=== PATIENT | female | born 1965 | race Caucasian/White ===

== ENCOUNTER → 2019-06-17 13:00 | Outpatient (CLI) | payer OTHER, SELFPAY | PROVIDERS: PCP Nurse Practitioner; Visit Provider Nurse Practitioner | DX: G47.30 Sleep apnea, unspecified (principal); R40.0 Somnolence; R06.83 Snoring; G47.33 Obstructive sleep apnea (adult) (pediatric) | CPT/HCPCS: 95806 ==

== ENCOUNTER → 2019-06-30 11:38 | Outpatient (CLI) | payer OTHER, SELFPAY | PROVIDERS: PCP Nurse Practitioner; Visit Provider Nurse Practitioner | DX: I49.9 Cardiac arrhythmia, unspecified (principal) | CPT/HCPCS: 93225; 93226 ==

== ENCOUNTER → 2019-07-08 15:01 | Outpatient (CLI) | payer OTHER, SELFPAY ==
[2019-07-08 15:57] LABS: Basophils % 0.5 % (0.1-2.0); Eosinophils # 0.1 K/mm3 (0.0-0.4); Eosinophils % 1.5 % (0.1-12.0); Hematocrit 41.8 % (37.0-47.0); Hemoglobin 14.2 g/dL (12.2-16.2); Lymphocytes # 1.8 K/mm3 (0.7-4.5); Lymphocytes % 27.2 % (10-50); Mean Corpuscular HGB Conc 33.9 g/dL (31.8-35.4); Mean Corpuscular Hemoglobin 33.2 pg (27.0-31.2); Mean Corpuscular Volume 97.9 fl (81-99); Mean Platelet Volume 8.2 fl (7.4-10.4); Monocytes # 0.4 K/mm3 (0.1-1.0); Monocytes % 6.2 % (1.7-9.3); Neutrophils # 4.3 K/mm3 (1.8-7.8); Neutrophils % 64.7 % (37.0-80.0); Platelet Count 193 K/mm3 (142-424); Red Blood Count 4.27 M/mm3 (4.20-5.40); Red Cell Distribution Width 13.4 % (11.5-17.5); White Blood Count 6.7 K/mm3 (4.8-10.8)
[2019-07-08 16:36] LABS: Chloride 100 mmol/L (98-107); Potassium 3.7 mmoL/L (3.5-5.1); Sodium 139 mmol/L (136-145)
[2019-07-08 16:38] LABS: Alanine Aminotransferase 23 U/L (12-78); Aspartate Amino Transferase 26 U/L (14-36); Blood Urea Nitrogen 13 mg/dl (7-17); Estimated Glomerular Filt Rate 88 ml/min (>60); GFR (African American) 107 ML/MIN (>60)
[2019-07-08 16:39] LABS: Albumin Level 3.8 g/dl (3.5-5.0); Albumin/Globulin Ratio 1.7 (1.1-1.8); Alkaline Phosphatase 82 U/L (38-126); Anion Gap 6.7 mEq/L (5-15); Bilirubin,Total 0.4 mg/dl (0.2-1.3); Calcium 9.3 mg/dl (8.4-10.2); Carbon Dioxide 36 mmol/L (22.0-30.0); Globulin 2.3 g/dL (1.3-3.2); Glucose 121 mg/dl (74-100); Magnesium 1.9 mg/dl (1.6-2.3); Total Protein,Serum 6.1 g/dl (6.3-8.2)
[2019-07-08 16:45] LABS: C-Reactive Protein 7.7 mg/L (0-4)
[2019-07-08 16:52] LABS: Troponin I < 0.01 ng/ml (0.00-0.034)
[2019-07-08 17:09] LABS: Thyroid Stimulating Hormone 2.07 uIU/mL (0.465-4.68)
== END ==
PROVIDERS: Visit Provider Nurse Practitioner Family
DX: R03.0 Elevated blood-pressure reading, without diagnosis of hypertension (principal); R07.9 Chest pain, unspecified; I49.9 Cardiac arrhythmia, unspecified
CPT/HCPCS: 36415; 80053; 83735; 84443; 84484; 85025; 86140

== ENCOUNTER 2020-02-24 16:38 | Emergency (ER) | payer OTHER, SELFPAY ==
[2020-02-24 16:45] VITALS: BP 163/97; PULSE 70; RESP 20; TEMP 36.7; O2SAT 98; BMI 24.7
--- NOTE | 2020-02-24 16:53 | HMH.EDUTC ---
[facility] [place] Clinical Impression: Exposure to COVID-19 virus Disposition: Home, Self-Care Condition on Discharge: Good Instructions: DI for COVID-19 (Suspected or Confirmed ), COVID-19 Viral Test, COVID-19: Testing and Tracing, Preventing the Spread of Coronavirus Discharge Instructions Additional Instructions: *Monitor Temp, Over the counter Motrin or Tylenol as directed/as needed Tylenol every 4 hours and Motrin every 6 hours (as long as your family doctor has told you that you can take it) for fever or pain. and straight to ER if unable to lower temp less than 101.0 after medication given *Warm salt water gargles may help to soothe the throat *Throat Lozenges *Warm fluids like tea with honey may help to soothe the throat *Sleep elevated *Humidifier/Vaporizer Follow up IMMEDIATELY for new or worsening symptoms or no Noticeable improvement over the next 48-72 hours. 911 for difficulty breathing or swallowing You were tested for today for COVID19 your test result should be back in the next 24-48 hours, you may call to the [facility] to see if your test results are back in the next 48 hours [phone] [facility] hours are 9am-9pm You was given a handout with instructions for Self Quarantine and Self isolation for while you wait on test results and what to do if they are positive If you are positive the Health Dept will be contacting you also Referrals: Paris Dobbins APRN [Primary Care Provider] - As needed Forms: Work/School Release Time of Disposition: 16:55 Medical Decision Making - Jovanny Inquiry Pt receiving controlled substance: No Jovanny was queried for this patient: No Vital Signs: 02/24/20 16:45 Temperature 98.0 F Temperature Source Oral Pulse Rate [Left Brachial] 70 Respiratory Rate 20 Blood Pressure [Left Arm] 163/97 H Blood Pressure Mean [Left Arm] 119 Blood Pressure Source [Left Arm] Automatic Cuff Blood Pressure Position [Left Arm] Sitting 02 Sat by Pulse Oximetry 98 Oxygen Delivery Method Room Air Orders (Tests/Meds): ORDERS Category Date Time Status Covid-19 Nasal PCR Sendout P&C Stat Lab 02/24/20 16:40 Ordered [facility] [place] HPI - General Stated complaint: Covid test, loss taste/smell Time Seen by Provider: 02/24/20 16:53 Mode of Arrival: Ambulatory Source of Information: Patient Limitations: No Limitations Description of Symptoms (Recalled from Triage Doc. by RN): PATIENT REQUESTING COVID TEST D/T EXPOSURE; C/O LOSS OF TASTE AND SMELL, ON AND OFF HEAD/BODY ACHES HEENT Symptoms (Recalled from RN notes): Yes Resp Symptoms (Recalled from RN notes): No Skin Symptoms (Recalled from RN notes): No MS Symptoms (Recalled from RN notes): No Functional Status (Recalled from RN notes): WNL - History of Present Illness Provider Complaint: Patient states that she was around a co-worker last week that has since tested positive States that she was tested yesterday and it was negative but today she has lost her taste and smell States that she has been having body aches, chills and headaches on and off and wanted to get tested again for COVID - Related Data Home Medications Medication Instructions Recorded Confirmed escitalopram oxalate 20 mg tablet 20 mg PO DAILY tab 07/16/19 07/16/19 metoprolol succinate 25 mg 25 mg PO DAILY tab 07/16/19 07/16/19 tablet,extended release 24 hr omeprazole 20 mg capsule,delayed 20 mg PO DAILY 08/18/19 08/18/19 release Previous Rx's Medication Instructions Recorded aspirin 81 mg tablet,delayed 81 mg PO DAILY #30 tab 07/16/19 release Allergies Allergy/AdvReac Type Severity Reaction Status Date / Time No Known Allergies Allergy Verified 08/18/19 13:58 - Worker's Comp Is this a Worker's Comp case?: No [facility] History - Hepatitis A Screen Drug use history?: No High risk sexual behaviors?: No History of sexually transmitted infection?: No Currently employed?: No Childcare worker?: No Do you have indoor plumbing?: Yes Do you have electri
[2020-02-24 17:02] VITALS: BP 163/87; PULSE 70; RESP 20; TEMP 36.7; O2SAT 98
== END 2020-02-24 17:02 | disposition home or self-care (01) ==
PROVIDERS: Emergency Provider Nurse Practitioner; PCP Nurse Practitioner
DX: Z20.828 Contact with and (suspected) exposure to other viral communicable diseases (principal); K21.9 Gastro-esophageal reflux disease without esophagitis; F17.210 Nicotine dependence, cigarettes, uncomplicated; Z79.899 Other long term (current) drug therapy
CPT/HCPCS: 99201; U0003; U0004

== ENCOUNTER 2020-04-08 08:32 | Emergency (ER) | payer OTHER, SELFPAY ==
[2020-04-08] VITALS (12 sets, daily range): BP systolic 99–178; BP diastolic 66–93; PULSE 68–95; RESP 16–18; TEMP 36.6; O2SAT 94–98; BMI 25.0
--- NOTE | 2020-04-08 08:34 | ECG_ITS ---
APPROVED REPORT Exam: Resting ECG HR:71 bpm ECG Measurements Heart Rate 71 AXES WI 138 P 80 QRSd 76 QRS 80 QT 378 T 71 QTc 410 Conclusion Normal sinus rhythm Normal ECG Electronically signed by : Dano Lorenzo, 04/08/2020 21:04:37
--- NOTE | 2020-04-08 08:37 | XR_ITS ---
PROCEDURE: XR CHEST PORTABLE CLINICAL HISTORY: chest pain Left-sided chest pain COMPARISON: CT CT ANGIO CHEST from 04/08/2020 FINDINGS: The cardiomediastinal silhouette and pulmonary vascularity are within normal limits. Patchy density is present in the lung bases. Upper lobes are clear. No effusions. No acute bony abnormalities. IMPRESSION: Patchy density in the lung bases suggesting underlying infiltrate. Dictated by: Juan Alberto Palacio MD 04/08/2020 11:26 Juan Alberto Palacio MD in [place] 04/08/2020 11:26
--- NOTE | 2020-04-08 08:39 | HMH.EDGENADL ---
ED Disposition Clinical Impression: Atypical chest pain Disposition: Home, Self-Care Condition on Discharge: Fair Additional Instructions: You have been evaluated for chest pain, atypical. Please follow-up tomorrow morning for stress test with cardiology. Follow-up with Dr. Greenberg in clinic as soon as available. Return to the emergency department at once if you have any new or worsening chest pain or any other concerns. Referrals: PCP,No [Non-Staff] - Time of Disposition: 13:49 - Critical Care Critical Care Time: No Attestation: On , the high probability of a clinically significant, sudden or life threatening deterioration of the following system(s) required my full and direct attention, intervention and personal management. The time I documented below is in addition to time spent performing reported procedures but includes the following listed in this critical care notation. Medical Decision Making - Medical Records Medical records reviewed: Yes: I reviewed the patient's medical records. - Jovanny Inquiry Pt receiving controlled substance: No Vital Signs: 04/08/20 08:33 04/08/20 09:13 04/08/20 09:45 Temperature 97.9 F Temperature Source Oral Pulse Rate [Radial] 71 68 72 Respiratory Rate 16 16 Blood Pressure [Right Radial Artery] 164/93 H 145/91 H 123/77 Blood Pressure Mean [Right Radial Artery] 116 109 92 Blood Pressure Source [Right Radial Artery] Automatic Cuff Blood Pressure Position [Right Radial Artery] Sitting Sitting Sitting 02 Sat by Pulse Oximetry 98 96 98 Oxygen Delivery Method Room Air Room Air 04/08/20 09:51 04/08/20 10:02 04/08/20 10:09 Temperature Temperature Source Pulse Rate [Radial] 83 69 Respiratory Rate Blood Pressure [Right Radial Artery] 106/67 L 99/67 L 99/67 L Blood Pressure Mean [Right Radial Artery] 80 77 77 Blood Pressure Source [Right Radial Artery] Automatic Cuff Blood Pressure Position [Right Radial Artery] Sitting Sitting Sitting 02 Sat by Pulse Oximetry 96 Oxygen Delivery Method Room Air 04/08/20 10:52 04/08/20 11:19 04/08/20 13:37 Temperature Temperature Source Pulse Rate [Radial] 69 70 93 H Respiratory Rate Blood Pressure [Right Radial Artery] 115/72 122/67 132/77 Blood Pressure Mean [Right Radial Artery] 86 85 95 Blood Pressure Source [Right Radial Artery] Automatic Cuff Automatic Cuff Blood Pressure Position [Right Radial Artery] Sitting Sitting Sitting 02 Sat by Pulse Oximetry 98 96 95 Oxygen Delivery Method Room Air Room Air - Lab Data Lab Results 04/08/20 08:40: WBC 8.5, RBC 4.86, Hgb 16.0, Hct 48.9 H, MCV 100.5 H, MCH 33.0 H, MCHC 32.8, RDW 13.9, Plt Count 157, MPV 8.0, Neut % (Auto) 75.5, Lymph % (Auto) 17.7, [place] % (Auto) 4.2, Eos % (Auto) 2.2, Baso % (Auto) 0.4, Neut # (Auto) 6.4, Lymph # (Auto) 1.5, [place] # (Auto) 0.4, Eos # (Auto) 0.2, Baso # (Auto) 0.0 04/08/20 08:40: Sodium 141, Potassium 4.1, Chloride 102, Carbon Dioxide 33 H, Anion Gap 10.1, BUN 12, Creatinine 0.70, Estimated Creat Clear 108, Estimated GFR 88, Est GFR ( Amer) 106, Glucose 106 H, Calcium 10.5 H, Troponin I < 0.01 04/08/20 08:40: SARS-CoV-2 IgG Ab (Rapid) Negative, SARS-CoV-2 IgM Ab (Rapid) Negative 04/08/20 11:50: Troponin I < 0.01 Result diagrams: 04/08/20 08:40 04/08/20 08:40 Orders (Tests/Meds): ED MEDICATIONS Discontinued Medications Generic Name Dose Route Start Last Admin Trade Name Freq PRN Reason Stop Dose Admin Aspirin 243 mg 04/08/20 08:38 04/08/20 08:39 Aspirin 81mg Chewable Tablet PO 04/08/20 08:39 243 mg ONCE ONE Administration Sodium Chloride 1,000 mls @ 999 mls/hr 04/08/20 10:15 04/08/20 10:09 Sod Chlor 0.9% 1000ml Bag IV 04/08/20 11:15 999 mls/hr .Q1H1M KIRILL Administration Iopamidol 70 ml 04/08/20 10:32 04/08/20 10:35 Iopamidol-370 (76%);100ml Bottle IV 04/08/20 10:33 70 ml ONCE ONE Administration Morphine Sulfate 4 mg 04/08/20 10:17 04/08/20 10:18 Morphine 4mg/Ml
--- NOTE | 2020-04-08 08:52 | PC.NURSE ---
Rad at bedside
[2020-04-08 09:03] LABS: Basophils % 0.4 % (0.1-2.0); Eosinophils # 0.2 K/mm3 (0.0-0.4); Eosinophils % 2.2 % (0.1-12.0); Hematocrit 48.9 % (37.0-47.0); Lymphocytes # 1.5 K/mm3 (0.7-4.5); Lymphocytes % 17.7 % (10-50); Mean Corpuscular HGB Conc 32.8 g/dL (31.8-35.4); Mean Corpuscular Volume 100.5 fl (81-99); Monocytes # 0.4 K/mm3 (0.1-1.0); Monocytes % 4.2 % (1.7-9.3); Neutrophils # 6.4 K/mm3 (1.8-7.8); Neutrophils % 75.5 % (37.0-80.0); Platelet Count 157 K/mm3 (142-424); Red Blood Count 4.86 M/mm3 (4.20-5.40); Red Cell Distribution Width 13.9 % (11.5-17.5); White Blood Count 8.5 K/mm3 (4.8-10.8)
[2020-04-08 09:47] LABS: Anion Gap 10.1 mEq/L (5-15); Blood Urea Nitrogen 12 mg/dl (7-17); Calcium 10.5 mg/dl (8.4-10.2); Carbon Dioxide 33 mmol/L (22.0-30.0); Chloride 102 mmol/L (98-107); Creatinine Clearance Estimated 108 mL/min (50-200); Estimated Glomerular Filt Rate 88 ml/min (>60); GFR (African American) 106 ML/MIN (>60); Glucose 106 mg/dl (74-100); Potassium 4.1 mmoL/L (3.5-5.1); Sodium 141 mmol/L (136-145)
--- NOTE | 2020-04-08 09:51 | CT_ITS ---
PROCEDURE: CT ANGIO CHEST CLINCIAL INDICATION: chest pain, radiation to neck Chest pain and shortness of air COMPARISON: No exams were available for comparison TECHNIQUE: IV Contrast: 70ML Isovue 370 Axial images obtained with sagittal and coronal reformats. All CT scans at the facility use one or more dose reduction, viz: automated exposure control, ma/kV adjustment per patient size (including targeted exams where dose is matched to indication, i.e. head), or iterative reconstruction technique. FINDINGS: HEART AND MEDIASTINAL STRUCTURES: No evidence of pulmonary embolus or aortic dissection. There is mild dilatation of the proximal descending thoracic aorta measuring 2.7 cm LUNGS AND PLEURAL SPACES: There are centrilobular emphysematous changes. Atelectatic or fibrotic changes are present in the right middle lobe and lingula. Ground-glass infiltrate noted in the right and left lower lobe posteriorly right greater than left. There is evidence of old granulomatous disease. No effusions are evident. BONY STRUCTURES: No acute bony abnormalities apparent. UPPER ABDOMEN: Unremarkable. ADDITIONAL FINDINGS: No other significant abnormalities. IMPRESSION: 1. No evidence of pulmonary embolus. 2. Mild dilatation of the proximal descending thoracic aorta at 2.7 cm. No evidence of aortic dissection. 3. Ground-glass infiltrate in the lower lobes posteriorly on both sides right greater than left. This is nonspecific and could be infectious/inflammatory. This does not have the usual multifocal appearance that we have been seeing with Covid19 pneumonia however, that entity is not excluded.. Dictated by: Juan Alberto Palacio MD 04/08/2020 10:56 Juan Alberto Palacio MD in [place] 04/08/2020 10:56
[2020-04-08 10:05] LABS: Troponin I < 0.01 ng/ml (0.00-0.034)
[2020-04-08 11:44] LABS: Coronavirus 19 IgG Antibody Negative (Negative); Coronavirus 19 IgM Antibody Negative (Negative)
--- NOTE | 2020-04-08 11:54 | CA_ITS ---
APPROVED REPORT EXAM: Comprehensive 2D, Doppler, and color-flow Echocardiogram Commercial Artist Lettering: Rosalinda Alvarez RVT Ht: 5 ft 7 in Wt: 160lbs BSA: 1.84 BP: 122/67 mmHg Indications: CP,SMOKER,PALPS,HTN 2D Dimensions LVOT 1.78 cm (M/F) 1.5-2.5 M-Mode Dimensions RVDd 2.32 cm (0.9-2.6) LA Diam 3.37 cm (1.9-4.0) LVDd 4.61 cm (3.5-5.7) Ao Diam 2.33 cm (2.0-3.7) LVDs 2.83 cm (3.5-5.7) IVSd 0.66 cm (0.6-1.1) PWd 0.80 cm (0.6-1.1) EF (Teich) 69.00% FS 38.60% EDV (Teich) 97.80 mL ESV (Teich) 30.30 mL LV Diastology E Decel Time 240.00 (160-240 msec) E/A Ratio 1.0 MED E' 9.60 (< 7 cm/sec) E'/MED E' Ratio 10.93 (>14) LAT E' 11.00 (<10 cm/sec) E/LAT E' Ratio 9.54 (>14) Mitral Valve MV E Max Blademar. 105.00 (40-130 cm/s) MV A Velocity 102.00 (40-130 cm/s) E/A Ratio 1.03 MV Decel. Time 240.00 (160-240 ms) MV PHT 70.00 ms Pulmonary Valve PV Peak Velocity 61.00 (50-150 cm/s) Tricuspid Valve TR P. Velocity 190.00 cm/s Left Ventricle Left atrium is normal size, left ventricle is normal size, there is no concentric left ventricular hypertrophy, visually estimated ejection fraction 55% with no regional wall motion abnormality. Diastolic parameters are within normal range. Right Ventricle Right atrium is normal size, right ventricle is mildly enlarged with normal contractility. Aortic Valve Aortic valve is minimally thickened and fibrosed. There is no aortic stenosis or aortic insufficiency. Mitral Valve Mitral valve is grossly normal, there is trace mitral regurgitation. Tricuspid Valve Tricuspid valve grossly normal, there is trace tricuspid regurgitation, tricuspid regurgitation jet velocity is inadequate for calculation of the right ventricular systolic pressure. Pulmonic Valve Pulmonic valve is poorly visualized. Great Vessels Aortic root is normal size. Pericardium No significant pericardial effusion noted. Conclusion 1. Normal left ventricular size, preserved left ventricular systolic function, visually estimated ejection fraction 55% with no regional wall motion abnormality, diastolic parameters are within normal range. 2. Mildly enlarged right ventricle with normal contractility. 3. Trace mitral and tricuspid regurgitation. 4. No significant pericardial effusion noted. Electronically signed by : Naveen Shaikh, 04/08/2020 15:10:12
--- NOTE | 2020-04-08 12:17 | PC.NURSE ---
Echo lab at bedside
--- NOTE | 2020-04-08 12:18 | PC.NURSE ---
PT HAVING A ECHO DONE AT BEDSIDE
[2020-04-08 12:49] LABS: Troponin I < 0.01 ng/ml (0.00-0.034)
--- NOTE | 2020-04-08 13:13 | PC.NURSE ---
[facility] AGREED TO ADMISSION WE CALLED DR DESAI HE DOESNT WANT TO ADMIT PT SAYS THAT CARDIOLOGY CAN JUST ADMIT UNDER THEIR SERVICES, WE CALLED BARRY BACK AND SHE SAYS FOR PT TO COME BACK TOMORROW FOR STRESS TEST THEY WILL CONTACT WITH TIMES
--- NOTE | 2020-04-08 13:18 | HMH.CNCARD ---
History of Present Illness Consult date: 04/08/20 Requesting physician: Nelly Galvin Consult reason: chest pain Chief complaint: chest pain History of present illness: This is a 54-year-old female presenting to the emergency department with complaints of chest pain. She states that this pain is in the substernal aspect of her chest and radiating into the left side of her neck and her left arm. She states that at the worst the pain is a 8 out of 10 in intensity. She describes this as a aching and pressure sensation. She states this pain woke her up from sleep. She states that she is short of breath with the chest pain. She denies any nausea vomiting or diaphoresis. She states that she has never had chest pain like this before and it is much worse than it has been in the past. She denies any edema. She denies any fever, chills, nausea, vomiting, diarrhea, PND or orthopnea. [facility] History I have reviewed the patient's past medical history: Yes Medical History: Reports:: Palpitations *Have you ever received a pneumonia vaccine?: No *Have you received a flu vaccine this season?: Yes Other Surgeries: Yes: No Previous Surgery - *Social History Smoking Status: Current every day smoker # Packs/Day (cigarettes): 1 Alcohol Intake: never Alcohol Intake Frequency:: holidays/special occasions only Substance Use Type: denies use *Occupational Status:: other *Travel in the last 8 weeks: None Family Hx:: Coronary Artery Disease, Cancer, Hypertension Meds Home Medications Medication Instructions Recorded Confirmed Type escitalopram oxalate 20 mg tablet 20 mg PO DAILY tab 07/16/19 04/08/20 History metoprolol succinate 25 mg 25 mg PO DAILY tab 07/16/19 04/08/20 History tablet,extended release 24 hr omeprazole 20 mg capsule,delayed 20 mg PO DAILY 08/18/19 04/08/20 History release Aspirin [Low Dose Aspirin EC] 81 mg PO DAILY 04/08/20 04/08/20 History Allergies Allergy/AdvReac Type Severity Reaction Status Date / Time No Known Allergies Allergy Verified 03/15/20 14:08 Exam Vital signs and Labs for Last 24 Hours: Temp Pulse Resp BP Pulse Ox 97.9 F 70 16 122/67 96 04/08/20 08:33 04/08/20 11:19 04/08/20 09:45 04/08/20 11:19 04/08/20 11:19 Laboratory Results - last 24 hr 04/08/20 08:40: WBC 8.5, RBC 4.86, Hgb 16.0, Hct 48.9 H, MCV 100.5 H, MCH 33.0 H, MCHC 32.8, RDW 13.9, Plt Count 157, MPV 8.0, Neut % (Auto) 75.5, Lymph % (Auto) 17.7, [place] % (Auto) 4.2, Eos % (Auto) 2.2, Baso % (Auto) 0.4, Neut # (Auto) 6.4, Lymph # (Auto) 1.5, [place] # (Auto) 0.4, Eos # (Auto) 0.2, Baso # (Auto) 0.0 04/08/20 08:40: Sodium 141, Potassium 4.1, Chloride 102, Carbon Dioxide 33 H, Anion Gap 10.1, BUN 12, Creatinine 0.70, Estimated Creat Clear 108, Estimated GFR 88, Est GFR ( Amer) 106, Glucose 106 H, Calcium 10.5 H, Troponin I < 0.01 04/08/20 08:40: SARS-CoV-2 IgG Ab (Rapid) Negative, SARS-CoV-2 IgM Ab (Rapid) Negative 04/08/20 11:50: Troponin I < 0.01 I & O for Last 24 hours: Intake & Output 04/05/20 04/06/20 04/07/20 04/08/20 23:59 23:59 23:59 23:59 Weight 160 lb Narrative: EKG is sinus rhythm and normal with a rate of 71. - Constitutional no acute distress, average body habitus - *Routine HEENT Exam Head: Present: normocephalic, atraumatic Eye: Present: EOMI, PERRL ENT: Present: mucous membranes moist - *Routine Neck Exam Present: supple, full ROM, normal carotid upstroke. Absent: JVD, carotid bruit, lymphadenopathy - *Routine Respiratory Exam Present: CTA bilaterally - *Routine Cardiovascular Exam Present: RRR, Normal S1, Normal S2. Absent: murmur - *Routine Abdominal Exam Present: soft, normoactive bowel sounds. Absent: tenderness, distended - *Routine Extremities Exam Present: full ROM, pulses intact, normal capillary refill. Absent: cyanosis, clubbing, edema - *Routine Skin Exam Present: intact, warm. Absent: erythema, rash - *Routine Neurological Exam Present: alert, orien
--- NOTE | 2020-04-08 13:51 | PC.NURSE ---
PT IS TO BE BACK IN THE MORNING @ 0750 FOR HER STRESS TEST BUT PT HAS NO INS SO REYNA VITALE IS WORKING ON THIS
[2020-04-08 15:07] LABS: Troponin I < 0.01 ng/ml (0.00-0.034)
--- NOTE | 2020-04-08 15:14 | PC.NURSE ---
pt waiting for bus van driver to come to [place] and pick her up to take her home
== END 2020-04-08 15:34 | disposition home or self-care (01) ==
PROVIDERS: Emergency Provider Emergency Medicine; PCP Nurse Practitioner
DX: R07.89 Other chest pain (principal); I10 Essential (primary) hypertension; F17.210 Nicotine dependence, cigarettes, uncomplicated; Z01.84 Encounter for antibody response examination; Z79.899 Other long term (current) drug therapy
CPT/HCPCS: 36415; 71045; 71275; 80048; 84484; 85025; 86328; 93005; 93306; 96365; 96375; 96376; 99283; J2405; Q9967

== ENCOUNTER → 2020-04-09 07:29 | Outpatient (CLI) | payer OTHER, SELFPAY ==
--- NOTE | 2020-04-09 | CA_ITS ---
APPROVED REPORT Exam: Exercise Treadmill Technologist: Toyin Lujan, Ht: 5 ft 8 in Wt: 163 lbs BSA: 1.87 m2 HR: 70 bpm BP: 130/82 mmHg Rhythm: NSR Medical History Medications: Omeprazole,,,,, Metoprolol,,,,, Lexapro,,,,, Asapirin,,,,, Stress Test Details Test: Laci HR Resting HR: 78 bpm Max Heart Rate (APMHR): 168 bpm Max HR Achieved: 150 bpm Target HR (85% APMHR): 142 bpm % of APMHR: 89 Recovery HR: 89 bpm BP Resting BP: 137/87 mmHg Max BP: 147/77 mmHg Recovery BP: 147.0/65.0 mmHg ECG Clinical Exercise duration: 06:22 min Highest Stage Achieved: Exercise capacity: 7.0 METs Stress ECG Conclusion Max HR - 150: %of PM - 89.1: Max B/P - 147/77: Mets - 7.0 - test stopped due to shortness of breath - resolved in recovery. Symptoms - no chest pain - shortness of breath at peak. Occ. PVC. ST -T changes - less than 1.5mm ST depression. Baseline artifact. GXT only - less than 1.[address] depression. Average exercise tolerance. Appioprate B/P response. Normal GXT. Test Summary REST . . . . . . . Sitting REST . . . . . . . Standing REST 03:37 0.0 1.2 78 . 137/ 87 . . Stage 1 01:00 10.0 1.7 97 . . . . Stage 1 02:00 10.0 1.7 107 . 142/ 84 . . Stage 1 03:00 10.0 1.7 109 . 142/ 84 . . Stage 2 01:00 12.0 2.5 120 . . . . Stage 2 02:00 12.0 2.5 132 . . . . Stage 2 03:00 12.0 2.5 138 . 142/ 98 . . Stage 3 00:22 14.0 3.4 97 . . . Stop exercise at 06:22 RECOVERY 01:00 0.0 0.0 129 . . . . RECOVERY 02:00 0.0 0.0 109 . 147/ 77 . . RECOVERY 03:00 0.0 0.0 91 . 147/ 77 . . RECOVERY 03:53 0.0 0.0 88 . 147/ 65 . . Electronically signed by : Naveen Shaikh, 04/09/2020 13:25:05
== END ==
PROVIDERS: PCP Nurse Practitioner; Visit Provider Nurse Practitioner Family
DX: R07.89 Other chest pain (principal); R00.2 Palpitations; I49.9 Cardiac arrhythmia, unspecified; R53.83 Other fatigue
CPT/HCPCS: 93017

== ENCOUNTER → 2020-11-22 17:25 | Outpatient (CLI) | payer SELFPAY | PROVIDERS: PCP Nurse Practitioner Family; Visit Provider Nurse Practitioner | DX: Z20.822 Contact with and (suspected) exposure to COVID-19 (principal) | CPT/HCPCS: C9803; U0003; U0005 ==

== ENCOUNTER 2021-02-25 17:03 | Emergency (ER) | payer SELFPAY ==
[2021-02-25 17:04] VITALS: BP 143/96; PULSE 90; RESP 16; TEMP 36.8; O2SAT 96; BMI 23.8
--- NOTE | 2021-02-25 17:28 | XR_ITS ---
PROCEDURE INFORMATION: Exam: XR Left Knee Exam date and time: 02/25/2021 5:28 PM Age: 55 years old Clinical indication: Injury or trauma; Fall; Blunt trauma; Knee; Left; Patient HX: Pain TECHNIQUE: Imaging protocol: XR Left knee. Views: 3 views. Total images: 3 COMPARISON: No relevant prior studies available. FINDINGS: Bones/joints: Osteopenia. No fracture. No blastic or lytic lesions. No significant joint effusion is present. Mild joint space narrowing in the medial tibiofemoral compartment. Slight medial joint line spurring. Soft tissues: No periostitis or osteolysis. No gross soft tissue abnormalities. No foreign bodies. Other findings: Normal alignment. IMPRESSION: 1. No acute findings. 2. Osteopenia and mild osteoarthritic changes in the medial compartment.
--- NOTE | 2021-02-25 17:28 | XR_ITS ---
PROCEDURE INFORMATION: Exam: XR Right Knee Exam date and time: 02/25/2021 5:28 PM Age: 55 years old Clinical indication: Injury or trauma; Blunt trauma; Knee; Left; Patient HX: Fall , pain TECHNIQUE: Imaging protocol: XR Right knee. Views: 3 views. Total images: 3 COMPARISON: No relevant prior studies available. FINDINGS: Bones/joints: No fracture. No blastic or lytic lesions. No significant joint effusion is present. Minimal joint space narrowing in the medial tibiofemoral compartment. Soft tissues: No periostitis or osteolysis. No gross soft tissue abnormalities. No foreign bodies. Other findings: Normal alignment. IMPRESSION: 1. No acute findings. 2. Osteopenia and minimal osteoarthritic joint space narrowing in the medial compartment.
[2021-02-25 17:29] VITALS: BP 143/96; PULSE 90; RESP 16; TEMP 36.8; O2SAT 96; BMI 23.8
--- NOTE | 2021-02-25 19:02 | HMH.EDUTC ---
[facility] [place] Clinical Impression: Fall Qualifiers: Encounter type: initial encounter Qualified Code(s): W19.XXXA - Unspecified fall, initial encounter Bilateral knee pain Qualifiers: Chronicity: acute Qualified Code(s): M25.561 - Pain in right knee Right knee sprain Qualifiers: Encounter type: initial encounter Involved ligament of knee: unspecified ligament Qualified Code(s): S83.91XA - Sprain of unspecified site of right knee, initial encounter Disposition: Home, Self-Care Condition on Discharge: Good Instructions: Knee Sprain, DI for Knee Sprain, How to Use a Knee Immobilizer Additional Instructions: Rest the extremities, apply ice for 15 minutes as tolerated three or four times per day for the next 48 hours then apply heat if it helps, Elevate the extremities as tolerated while you are resting. Take ibuprofen for pain. I sent in a prescription to your pharmacy. Follow up with Dr. Bryant (orthopedics). Sometimes there can be fractures that don't show up well on the first set of x-rays. So, you should follow up if you continue to have symptoms. I put in a referral but you need to call his office and schedule an appointment. Follow up with your regular doctor. GO TO THE ER FOR ANY WORSENING SYMPTOMS Prescriptions: Ibuprofen [Ibuprofen 800mg Tablet] 800 mg PO Q8HP PRN #30 tab PRN Reason: Moderate Pain Transmission Status: Pending to [id number] Referrals: Dano Greenberg MD [Primary Care Provider] - Donnie Bryant MD [Staff Physician] - Time of Disposition: 19:21 Medical Decision Making - Medical Records Medical records reviewed: No: I reviewed the patient's medical records. - Jovanny Inquiry Pt receiving controlled substance: No Vital Signs: 02/25/21 17:04 02/25/21 17:29 Temperature 98.3 F 98.3 F Temperature Source Oral Oral Pulse Rate [Radial] 90 90 Respiratory Rate 16 16 Blood Pressure [Right Arm] 143/96 H 143/96 H Blood Pressure Mean [Right Arm] 111 111 Blood Pressure Position [Right Arm] Sitting 02 Sat by Pulse Oximetry 96 96 Oxygen Delivery Method Room Air - Lab Data Lab results reviewed: Yes: I reviewed the patient's lab results. [facility] [place] - General Stated complaint: AO 1224 fall, left leg pain Time Seen by Provider: 02/25/21 17:30 Mode of Arrival: Ambulatory Source of Information: Patient Limitations: No Limitations Description of Symptoms (Recalled from Triage Doc. by RN): pt c/o pain bilaterally in her knees. pt fell last night on them. pt is unable to put any pressure on. HEENT Symptoms (Recalled from RN notes): No Resp Symptoms (Recalled from RN notes): No Skin Symptoms (Recalled from RN notes): No MS Symptoms (Recalled from RN notes): Yes (bilateral knee pain) Functional Status (Recalled from RN notes): wnl - History of Present Illness Provider Complaint: She slipped in her house by stepping on a puppy pad and it sliding. When this happened, both feet went out and her knees came together. She is having bilateral knee pain. Her right knee is worse that her left. When she tries to walk, her right knee pain prevents it. - Related Data Home Medications Medication Instructions Recorded Confirmed escitalopram oxalate 20 mg tablet 20 mg PO DAILY tab 07/16/19 09/13/20 Aspirin [Low Dose Aspirin EC] 81 mg PO DAILY 04/08/20 09/13/20 omeprazole 20 mg capsule,delayed 20 mg PO DAILY PRN 04/20/20 09/13/20 release Previous Rx's Medication Instructions Recorded Ibuprofen [Ibuprofen 800mg 800 mg PO Q8HP PRN #30 tab 02/25/21 Tablet] Allergies Allergy/AdvReac Type Severity Reaction Status Date / Time No Known Allergies Allergy Verified 09/13/20 13:45 - Worker's Comp Is this a Worker's Comp case?: No [facility] History - Hepatitis A Screen Drug use history?: No High risk sexual behaviors?: No History of sexually transmitted infection?: No Currently employed?: No Childcare worker?: No Do you have indoor plumbing?: Yes Do
[2021-02-25 19:26] VITALS: BP 143/96; PULSE 90; RESP 16; TEMP 36.8
== END 2021-02-25 19:27 | disposition home or self-care (01) ==
LOC: ER 17:15 → UTC 17:17
PROVIDERS: Emergency Provider Nurse Practitioner Family; PCP Family Medicine
DX: S83.91XA Sprain of unspecified site of right knee, initial encounter (principal); W01.0XXA Fall on same level from slipping, tripping and stumbling without subsequent striking against object, initial encounter; Y92.019 Unspecified place in single-family (private) house as the place of occurrence of the external cause; F17.210 Nicotine dependence, cigarettes, uncomplicated
CPT/HCPCS: 29505; 73562; 99202; G0463

== ENCOUNTER → 2021-03-28 11:34 | Outpatient (CLI) | payer BC, SELFPAY | PROVIDERS: Visit Provider Nurse Practitioner | DX: U07.1 COVID-19 (principal) | CPT/HCPCS: C9803; U0003; U0005 ==

== ENCOUNTER 2023-04-03 12:54 | Outpatient (CLI) | payer OTHER, SELFPAY ==
[2023-04-03 12:56] LABS: Microscopic, Urine URINE MICROSCOPIC (MICROSCOPIC)
[2023-04-03 13:04] LABS: Basophils # 0.1 K/mm3 (0-0.2); Basophils % 1.1 % (0.1-2.0); Eosinophils # 0.2 K/mm3 (0.0-0.4); Eosinophils % 2.9 % (0.1-12.0); Hematocrit 47.2 % (37.0-47.0); Hemoglobin 16.1 g/dL (12.2-16.2); Lymphocytes # 1.8 K/mm3 (0.7-4.5); Lymphocytes % 27.9 % (10-50); Mean Corpuscular HGB Conc 34.2 g/dL (31.8-35.4); Mean Corpuscular Hemoglobin 34.4 pg (27.0-31.2); Mean Corpuscular Volume 100.7 fl (81-99); Mean Platelet Volume 9.2 fl (7.4-10.4); Monocytes # 0.4 K/mm3 (0.1-1.0); Monocytes % 5.9 % (1.7-9.3); Neutrophils # 4.1 K/mm3 (1.8-7.8); Neutrophils % 62.2 % (37.0-80.0); Platelet Count 178 K/mm3 (142-424); Red Blood Count 4.69 M/mm3 (4.20-5.40); Red Cell Distribution Width 13.7 % (11.5-17.5); White Blood Count 6.6 K/mm3 (4.8-10.8)
[2023-04-03 13:23] LABS: Appearance,Urine CLEAR (Clear); Bilirubin,Urine Negative (Negative); Blood, Urine TRACE-I (Negative); Color,Urine YELLOW (Yellow); Glucose,Urine (UA) Negative (Negative); Ketones,Urine Negative (Negative); Leukocyte Esterase,Urine Negative (Negative); Nitrate,Urine Negative (Negative); Protein,Urine Negative (Negative); Specific Gravity, Urine 1.025 (1.005-1.030); Urobilinogen,Urine 0.2 EU/dl (0.2)
[2023-04-03 13:31] LABS: Alanine Aminotransferase 28 U/L (12-78); Albumin Level 4.2 g/dl (3.5-5.0); Albumin/Globulin Ratio 1.8 (1.1-1.8); Alkaline Phosphatase 94 U/L (38-126); Anion Gap 8.3 mEq/L (5-15); Aspartate Amino Transferase 29 U/L (14-36); Bilirubin,Total 0.3 mg/dl (0.2-1.3); Blood Urea Nitrogen 10 mg/dl (7-17); Calcium 9.7 mg/dl (8.4-10.2); Carbon Dioxide 33 mmol/L (22.0-30.0); Chloride 102 mmol/L (98-107); Cholesterol 246 mg/dl (140-200); Estimated Glomerular Filt Rate 74 ml/min (>60); GFR (African American) 90 ML/MIN (>60); Globulin 2.3 g/dL (1.3-3.2); Glucose 96 mg/dl (74-100); HDL Cholesterol 82 mg/dl (40-60); Potassium 5.3 mmoL/L (3.5-5.1); Sodium 138 mmol/L (136-145); Total Protein,Serum 6.5 g/dl (6.3-8.2); Triglycerides 141 mg/dl (30-150); VLDL Cholesterol 28 mg/dL (0-40)
[2023-04-03 13:35] LABS: Bacteria,Urine Trace /lpf; RBC,Urine Occasional #/hpf (0-3); Squamous Epithelial Cell,Urine Occasional #/hpf (0-5)
[2023-04-03 13:42] LABS: Direct LDL Cholesterol 120.57 mg/dL (100-129)
[2023-04-03 13:47] LABS: Free T4 (Free Thyroxine) 0.79 ng/dl (0.78-2.19)
[2023-04-03 14:02] LABS: Thyroid Stimulating Hormone 2.65 uIU/mL (0.465-4.68)
[2023-04-03 14:21] LABS: Vitamin B12 323 pg/mL (239-931)
[2023-04-03 14:31] LABS: Hemoglobin A1C 5.7 % (4.0-6.0)
== END 2023-04-03 23:59 ==
LOC: LAB.DROPOF 12:54
PROVIDERS: PCP Nurse Practitioner Family; Visit Provider Nurse Practitioner Family
DX: I10 Essential (primary) hypertension (principal); F41.9 Anxiety disorder, unspecified; F32.9 Major depressive disorder, single episode, unspecified; R53.83 Other fatigue; K21.9 Gastro-esophageal reflux disease without esophagitis; E55.9 Vitamin D deficiency, unspecified; F17.210 Nicotine dependence, cigarettes, uncomplicated; Z79.899 Other long term (current) drug therapy
CPT/HCPCS: 80053; 80061; 81001; 82306; 82607; 83036; 84439; 84443; 85025; 87086

== ENCOUNTER 2023-04-19 09:15 | Outpatient (CLI) | payer OTHER, SELFPAY ==
--- NOTE | 2023-04-19 09:15 | XR_ITS ---
FINAL REPORT TECHNIQUE: Bone mineral density was calculated of the lumbar spine and hip. CLINICAL HISTORY: screening osteoporosis COMPARISON: None FINDINGS: Using L1-4, the bone mineral density of the spine is 0.9 g/cm2, corresponding to T-score of -1.3. Using the left hip, the bone mineral density of the femoral neck is 0.62 g/cm2, corresponding to a T-score of -2.1. NOTE: T-score: Standard deviation compared with peak bone mass of young adult mean. *Following the recommendations of the International Society of Bone densitometry, classification of hip BMD is based on the lower of two T-scores; total hip or femoral neck. IMPRESSION: Diminished bone mineral density of the lumbar spine and left hip consistent with low bone density. Reviewed, Interpreted and Dictated by Fernandez Klein III, MD Transcribed by Li Paniagua Authenticated and [facility]
--- NOTE | 2023-04-19 09:15 | MM_ITS ---
PROCEDURE INFORMATION: Exam: Bilateral Screening 3D Mammography Exam date and time: 04/19/2023 9:14 AM Age: 57 years old Clinical indication: Screening examination TECHNIQUE: Imaging protocol: Bilateral Screening tomosynthesis and 2D mammography including computer-aided detection (CAD) when performed. COMPARISON: DMSB DIGITAL MAMM-SCREEN BILATERAL 07/11/2010 8:50 AM FINDINGS: MAMMOGRAPHY: Breast composition: The breasts are heterogeneously dense, which may obscure small masses. Mass: None. Architectural distortion: None. Calcifications: No suspicious calcifications. Asymmetric density: None. Skin thickening: None. Axillary adenopathy: None. IMPRESSION: No mammographic evidence of malignancy. Annual screening is recommended unless otherwise clinically indicated. ASSESSMENT: BI-RADS Category 1: Negative
== END 2023-04-19 23:59 ==
LOC: RAD 09:15
PROVIDERS: PCP Nurse Practitioner Family; Visit Provider Internal Medicine
DX: Z78.0 Asymptomatic menopausal state (principal); Z12.31 Encounter for screening mammogram for malignant neoplasm of breast; Z91.81 History of falling
CPT/HCPCS: 77063; 77067; 77080

== ENCOUNTER 2023-05-07 14:49 | Outpatient (CLI) | payer OTHER, SELFPAY ==
--- NOTE | 2023-05-07 14:50 | CT_ITS ---
FINAL REPORT TECHNIQUE: Axial CT images of the chest were obtained without contrast. Low-dose protocol was utilized. This study was performed with techniques to keep radiation doses as low as reasonably achievable (ALARA). Individualized dose reduction techniques using automated exposure control or adjustment of mA and/or kV according to the patient's size were employed. CLINICAL HISTORY: lung cancer screening CURRENT SMOKER 37 YEARS, 1.5 PPD COMPARISON: None FINDINGS: CT CHEST WITHOUT, LOW DOSE SCREENING CT Di Vol: 2.90 mGy DLP: 112.03 mGy*cm There is no axillary, mediastinal, or hilar adenopathy. The heart size is normal. There is no pleural or pericardial effusion. The lung windows show mild emphysema and mild scarring. There are several calcified granulomas. There are multiple small pulmonary nodules. Groundglass nodule in the posterior right upper lobe measures 5 mm and is best seen on image 23. There is a 4 mm nodule in the medial left upper lobe seen on image 21. There are multiple other less than 5 mm nodules. Limited images of the upper abdomen demonstrate no acute finding. IMPRESSION: LR Category 2: 12 month follow-up low-dose chest CT is recommended. Reviewed, Interpreted and Dictated by Fernandez Klein III, MD Transcribed by Myesha Banuelos Authenticated and . [facility]
== END 2023-05-07 23:59 ==
LOC: RAD 14:50
PROVIDERS: PCP Nurse Practitioner Family; Visit Provider Nurse Practitioner Family
DX: Z87.891 Personal history of nicotine dependence (principal); Z12.2 Encounter for screening for malignant neoplasm of respiratory organs
CPT/HCPCS: 71271

== ENCOUNTER 2023-08-23 08:52 | Day surgery (SDC) | payer OTHER, SELFPAY ==
[2023-08-21 13:42] VITALS: BMI 24.5
[2023-08-22 12:36] VITALS: BMI 24.5
[2023-08-23 09:05] VITALS: BP 121/74; PULSE 63; RESP 18; TEMP 36.3; O2SAT 97
[2023-08-23] MEDS: LACTATED RINGERS 1000ML 1,000 ML 25 ML IV (09:17)
--- NOTE | 2023-08-23 09:33 | EXP.ANES.CKL ---
[facility] Disclaimer: The information contained in this section may have been updated after the patient was seen, as this information can be updated by other users. Medical History Comedone Vulvar Fatigue HTN (hypertension) Anxiety and depression GERD (gastroesophageal reflux disease) Osteopenia 04/19/23 Hot flashes Menopause Angina pectoris Atypical chest pain Cardiac dysrhythmia Palpitations Surgical History [place] teeth extracted H/O tubal ligation H/O removal of cyst Family History Father COPD (chronic obstructive pulmonary disease) Hypertension Aortic aneurysm Mother Cancer Breast Hypertension Social History (Updated 08/23/23 @ 09:10 by Kinjal Figueroa RN) Smoking Status: Current every day smoker tobacco type: cigarettes packs per day: 1 quit status: considering quitting alcohol intake: never substance use type: denies use current occupational status: other Travel in the last 8 weeks: None [facility] Anesthesia Checklist Patient Identification Patient Identification: Arm Band Structural Data Admitted From: Home Planned Operative Procedure/s: EGD Consent for Planned Operative Procedure(s) Verified: Yes Verified Documents: Surgical Consent and History and Physical NPO Status Verified Time NPO: 00:00 Additional verifications Anesthesia Reactions: No Airway Assessment Mallampati Score:: Class II C-Spine Mobility Assessed: Yes TMJ Mobility Assessed: Yes Dentition: Good Dentition Neurological Assessment Level of Consciousness: Awake, Alert and Appropriate Anesthesia Plan Anesthesia Risk discussed: Yes Anesthesia Plan: Verified ASA Class: II Anesthesia Type: MAC
[2023-08-23 09:37] VITALS: O2SAT 97
--- NOTE | 2023-08-23 10:07 | HMH.SCOPE ---
Procedure: Date: 08/23/23 Patient Date of :: 1965 Procedure Performed:: Colonoscopy and polypectomy Indications:: Colon cancer screening Performing Provider:: Fer Tejada MD Referring Provider:: Gisel Carvajal APRN Sedation:: Propofol Procedure:: After placing the patient in the left lateral decubitus position, the colonoscopy was gently inserted into the rectum and under direct visualization advanced to the cecum which was identified by transillumination in the right lower quadrant, identification of the ileocecal valve, appendiceal orifice, and cecal strap. Color, texture, mucosa, and anatomy of the colon were carefully examined with the scope. Findings:: Anal canal: normal Rectum: normal Sigmoid colon: Four semi adenomatous polyps 0.5-1 cm in size, snared and removed Descending colon: normal without polyps or inflammatory changes Splenic flexure: normal Transverse colon: normal without polyps or inflammatory changes Hepatic flexure: normal Ascending colon: normal without polyps or inflammatory changes Cecum: normal Terminal ileum: not visualized Impression: Sigmoid polyps x 4 Specimens:: Polyps Recommendations:: Follow up examination in about THREE years or so, sooner if clinically indicated in view of findings of polyps. Complications:: None Estimated blood obtained (mL): 0 Colonoscopy Component Colonoscopy Component Was a colonoscopy performed during today's procedure?: Yes Recommended follow up colonoscopy of at least 10 years?: No If no, follow up colonoscopy recommended in ___ years?: Three Reason for not recommending >/= 10 yr follow-up interval?: Multiple polyps
[2023-08-23 10:10] VITALS: BP 100/55; PULSE 66; RESP 18; TEMP 36.5; O2SAT 100
[2023-08-23 10:20] VITALS: BP 112/73; PULSE 70; RESP 16; O2SAT 98
[2023-08-23 10:30] VITALS: BP 121/79; PULSE 64; RESP 18; O2SAT 98
[2023-08-23 10:40] VITALS: BP 123/72; PULSE 66; RESP 18; O2SAT 99
== END 2023-08-23 10:47 | disposition home or self-care (01) ==
PROVIDERS: PCP Nurse Practitioner Family; Visit Provider Internal Medicine Gastroenterology
PROC: (CPT 45385; principal; 2023-08-23 10:00)
DX: Z12.11 Encounter for screening for malignant neoplasm of colon (principal); D12.5 Benign neoplasm of sigmoid colon
CPT/HCPCS: 45385; J7120

== ENCOUNTER 2023-09-04 17:45 | Outpatient (CLI) | payer SELFPAY | END 2023-09-04 23:59 | disposition home or self-care (01) | PROVIDERS: PCP Nurse Practitioner Family; Visit Provider Nurse Practitioner Family | DX: N39.0 Urinary tract infection, site not specified (principal) | CPT/HCPCS: 87086 ==

== ENCOUNTER 2023-11-20 13:40 | Outpatient (CLI) | payer OTHER, SELFPAY | END 2023-11-20 23:59 | disposition home or self-care (01) | LOC: LAB.DROPOF 13:40 | PROVIDERS: PCP Nurse Practitioner Family; Visit Provider Nurse Practitioner Family | DX: R05.1 Acute cough (principal) | CPT/HCPCS: 87635 ==

== ENCOUNTER 2024-03-03 15:56 | Outpatient (CLI) | payer OTHER, SELFPAY ==
--- NOTE | 2024-03-03 15:59 | XR_ITS ---
FINAL REPORT CLINICAL HISTORY: left upper arm pain and swelling COMPARISON: None FINDINGS: Two views of the left humerus were obtained. There is no fracture or other acute osseous abnormality. The shoulder and elbow are intact. There is no acute soft tissue abnormality. IMPRESSION: No acute osseous abnormality. Reviewed, Interpreted and Dictated by Miley Sanders MD Transcribed by Annetta Vogt Authenticated and [facility]
--- NOTE | 2024-03-03 15:59 | XR_ITS ---
FINAL REPORT CLINICAL HISTORY: neck pain FINDINGS: 2 views of the cervical spine were obtained. There is no prior exam for comparison. There is straightening of the cervical lordosis. There is no acute fracture. Vertebral body height is preserved. There is multilevel degenerative disc disease, most pronounced at C5-6 and C6-7. The precervical soft tissues are normal. IMPRESSION: Degenerative disc disease. Consider MRI if indicated. Reviewed, Interpreted and Dictated by Miley Sanders MD Transcribed by Annetta Vogt Authenticated and [facility]
--- NOTE | 2024-03-03 15:59 | XR_ITS ---
FINAL REPORT CLINICAL HISTORY: right upper arm pain and swelling COMPARISON: None FINDINGS: Two views of the right humerus were obtained. There is no fracture or other acute osseous abnormality. The shoulder and elbow are intact. There is no acute soft tissue abnormality. IMPRESSION: No acute osseous abnormality. Reviewed, Interpreted and Dictated by Miley Sanders MD Transcribed by Annetta Vogt Authenticated and [facility]
--- NOTE | 2024-03-03 15:59 | XR_ITS ---
FINAL REPORT CLINICAL HISTORY: left shoulder pain COMPARISON: None FINDINGS: 3 views of the left shoulder were obtained. There is no fracture or dislocation. The joint space is preserved. Soft tissues are unremarkable. IMPRESSION: No acute osseous abnormality of the left shoulder. Reviewed, Interpreted and Dictated by Miley Sanders MD Transcribed by Annetta Vogt Authenticated and [facility]
--- NOTE | 2024-03-03 15:59 | XR_ITS ---
FINAL REPORT CLINICAL HISTORY: right shoulder pain COMPARISON: None FINDINGS: 3 views of the right shoulder were obtained. There is no fracture or dislocation. The joint space is preserved. Soft tissues are unremarkable. IMPRESSION: No acute osseous abnormality of the right shoulder. Reviewed, Interpreted and Dictated by Miley Sanders MD Transcribed by Annetta Vogt Authenticated and [facility]
== END 2024-03-03 23:59 | disposition home or self-care (01) ==
LOC: RAD 15:57
PROVIDERS: PCP Nurse Practitioner Family; Visit Provider Nurse Practitioner Family
DX: M54.2 Cervicalgia (principal); M25.512 Pain in left shoulder; M25.511 Pain in right shoulder; M79.622 Pain in left upper arm; M79.621 Pain in right upper arm; M79.89 Other specified soft tissue disorders
CPT/HCPCS: 72040; 73030; 73060

== ENCOUNTER 2024-03-27 14:46 | Outpatient (CLI) | payer OTHER, SELFPAY ==
--- NOTE | 2024-03-27 14:46 | MR_ITS ---
FINAL REPORT CLINICAL HISTORY: posterior neck pain COMPARISON: None FINDINGS: Multi planar MR imaging was obtained of the cervical spine. There is abnormal decreased signal throughout the cervical discs. The vertebrae are of normal height. There is mild reversal of the normal cervical lordosis. The cervical cord demonstrates normal signal and configuration. C2-C3: There is no evidence of significant disc bulge or protrusion. There is no significant facet hypertrophy. C3-C4: There is no evidence of significant disc bulge or protrusion. There is no significant facet hypertrophy. C4-C5: There is no evidence of significant disc bulge or protrusion. There is no significant facet hypertrophy. C5-C6: A mild annular bulge is present with mild bilateral neural foraminal narrowing. C6-C7: A mild annular bulge is present with endplate hypertrophy eccentric to the right. There is moderate right and mild left neural foraminal narrowing. C7-T1: There is no evidence of significant disc bulge or protrusion. There is no significant facet hypertrophy. IMPRESSION: Mild degenerative change at the C5-6 and C6-7 levels as described. Reviewed, Interpreted and Dictated by Porter Taylor MD Transcribed by Li Paniagua Authenticated and [facility]
== END 2024-03-27 23:59 | disposition home or self-care (01) ==
LOC: RAD 14:46
PROVIDERS: PCP Nurse Practitioner Family; Visit Provider Nurse Practitioner Family
DX: M54.2 Cervicalgia (principal); M25.511 Pain in right shoulder; M25.512 Pain in left shoulder; M79.621 Pain in right upper arm; M79.622 Pain in left upper arm; M62.830 Muscle spasm of back; M79.89 Other specified soft tissue disorders
CPT/HCPCS: 72141

== ENCOUNTER 2024-03-28 12:58 | Outpatient (CLI) | payer OTHER, SELFPAY ==
--- NOTE | 2024-03-28 12:59 | MR_ITS ---
FINAL REPORT CLINICAL HISTORY: right shoulder pain. LIMITED ROM FINDINGS: Multi planar MR imaging of the right shoulder was performed. The supraspinatus tendon appears intact. There is no abnormal fluid in the subacromial/subdeltoid bursa. There is a defect extending across the anterior labrum consistent with a tear. The posterior labrum is intact. The biceps tendon appears intact. There are mild to moderate hypertrophic changes of the AC joint. IMPRESSION: Anteriorly labral tear. Mild to moderate hypertrophic changes of the AC joint. Reviewed, Interpreted and Dictated by Porter Taylor MD Transcribed by Deloris Moody Authenticated and . [facility]
--- NOTE | 2024-03-28 12:59 | MR_ITS ---
FINAL REPORT CLINICAL HISTORY: left shoulder pain. LIMITED ROM FINDINGS: Multi planar MR imaging of the left shoulder was performed. The supraspinatus tendon appears intact. There is no abnormal fluid in the subacromial/subdeltoid bursa. There is linear abnormal signal in the superior labrum concerning for a superior labral tear. Finding is best seen on the coronal images. The biceps tendon appears intact. There are mild to moderate hypertrophic changes of the AC joint. IMPRESSION: Mild to moderate hypertrophic changes of the AC joint. Questionable superior labral tear. Reviewed, Interpreted and Dictated by Porter Taylor MD Transcribed by Deloris Moody Authenticated and [facility][1]
== END 2024-03-28 23:59 | disposition home or self-care (01) ==
LOC: RAD 12:59
PROVIDERS: PCP Nurse Practitioner Family; Visit Provider Nurse Practitioner Family
DX: M25.512 Pain in left shoulder (principal); M25.511 Pain in right shoulder
CPT/HCPCS: 73221

== ENCOUNTER 2024-04-09 10:01 | Outpatient (CLI) | payer OTHER, SELFPAY ==
[2024-04-09 17:59] LABS: Microscopic, Urine URINE MICROSCOPIC (MICROSCOPIC)
[2024-04-09 18:50] LABS: Basophils % 0.7 % (0.1-2.0); Eosinophils # 0.2 K/mm3 (0.0-0.4); Eosinophils % 3.9 % (0.1-12.0); Hematocrit 48.6 % (37.0-47.0); Hemoglobin 15.8 g/dL (12.2-16.2); Lymphocytes # 1.5 K/mm3 (0.7-4.5); Lymphocytes % 25.4 % (10-50); Mean Corpuscular HGB Conc 32.5 g/dL (31.8-35.4); Mean Corpuscular Hemoglobin 32.8 pg (27.0-31.2); Mean Corpuscular Volume 100.8 fl (81-99); Monocytes # 0.5 K/mm3 (0.1-1.0); Monocytes % 8.1 % (1.7-9.3); Neutrophils # 3.6 K/mm3 (1.8-7.8); Neutrophils % 61.7 % (37.0-80.0); Platelet Count 173 K/mm3 (142-424); Red Blood Count 4.82 M/mm3 (4.20-5.40); Red Cell Distribution Width 14.4 % (11.5-17.5); White Blood Count 5.8 K/mm3 (4.8-10.8)
[2024-04-09 18:53] LABS: Bilirubin,Urine Negative (Negative); Blood, Urine Negative (Negative); Color,Urine YELLOW (Yellow); Glucose,Urine (UA) Negative (Negative); Ketones,Urine Negative (Negative); Leukocyte Esterase,Urine Negative (Negative); Nitrate,Urine Negative (Negative); Protein,Urine Negative (Negative); Specific Gravity, Urine 1.025 (1.005-1.030); Urobilinogen,Urine 0.2 EU/dl (0.2)
[2024-04-09 19:19] LABS: Albumin Level 4.8 g/dl (3.5-5.0); Chloride 102 mmol/L (98-107); Potassium 5.3 mmoL/L (3.5-5.1); Sodium 139 mmol/L (136-145)
[2024-04-09 19:21] LABS: Blood Urea Nitrogen 18 mg/dl (7-17); Estimated Glomerular Filt Rate 74 ml/min (>60); GFR (African American) 90 ML/MIN (>60)
[2024-04-09 19:22] LABS: Alanine Aminotransferase 29 U/L (12-78); Alkaline Phosphatase 85 U/L (38-126); Anion Gap 11.3 mEq/L (5-15); Aspartate Amino Transferase 29 U/L (14-36); Bilirubin,Total 0.3 mg/dl (0.2-1.3); Calcium 9.8 mg/dl (8.4-10.2); Carbon Dioxide 31 mmol/L (22.0-30.0); Chol/HDL Ratio 3.2 (1-3.5); Cholesterol 243 mg/dl (140-200); Globulin 1.6 g/dL (1.3-3.2); Glucose 93 mg/dl (74-100); HDL Cholesterol 77 mg/dl (40-60); Iron 131 ug/dL (37-170); Total Protein,Serum 6.4 g/dl (6.3-8.2); Triglycerides 130 mg/dl (30-150); VLDL Cholesterol 26 mg/dL (0-40)
[2024-04-09 19:29] LABS: Hemoglobin A1C 5.5 % (4.0-6.0)
[2024-04-09 19:35] LABS: Direct LDL Cholesterol 132.54 mg/dL (100-129)
[2024-04-09 19:38] LABS: Total Iron Binding Capacity 330 ug/dL (265-497)
[2024-04-09 19:44] LABS: Free T4 (Free Thyroxine) 1.04 ng/dl (0.78-2.19)
[2024-04-09 19:48] LABS: 25-OH Vitamin D, Total 56.9 ng/mL (30-100)
[2024-04-09 19:53] LABS: Thyroid Stimulating Hormone 2.99 uIU/mL (0.465-4.68)
[2024-04-09 20:09] LABS: HIV Combo NEGATIVE (Negative)
[2024-04-09 20:10] LABS: Vitamin B12 295 pg/mL (239-931)
[2024-04-09 20:15] LABS: Hepatitis C Ab Qual. W/ RFX NEGATIVE (Negative)
[2024-04-09 22:45] LABS: Bacteria,Urine 2+ /lpf
[2024-04-09 22:47] LABS: Appearance,Urine Slightly Cloudy (Clear)
== END 2024-04-09 23:59 | disposition home or self-care (01) ==
LOC: LAB.DROPOF 04-11 08:51
PROVIDERS: PCP Nurse Practitioner Family; Visit Provider Nurse Practitioner Family
DX: Z00.00 Encounter for general adult medical examination without abnormal findings (principal); D22.4 Melanocytic nevi of scalp and neck; G47.33 Obstructive sleep apnea (adult) (pediatric); F17.200 Nicotine dependence, unspecified, uncomplicated; F41.1 Generalized anxiety disorder; F33.9 Major depressive disorder, recurrent, unspecified; Z11.59 Encounter for screening for other viral diseases; Z91.89 Other specified personal risk factors, not elsewhere classified; R30.0 Dysuria; Z11.4 Encounter for screening for human immunodeficiency virus [HIV]; R91.8 Other nonspecific abnormal finding of lung field; I10 Essential (primary) hypertension; Z13.1 Encounter for screening for diabetes mellitus; Z13.220 Encounter for screening for lipoid disorders
CPT/HCPCS: 80053; 80061; 81001; 82306; 82607; 82728; 83036; 83540; 83550; 84439; 84443; 85025; 86803; 87086; 87389

== ENCOUNTER 2024-04-28 13:43 | Outpatient (CLI) | payer OTHER, SELFPAY ==
--- NOTE | 2024-04-28 13:44 | CT_ITS ---
FINAL REPORT CLINICAL HISTORY: lung cancer screening CURRENT SMOKER 1.5PPD X42 YEARS COMPARISON: 05/07/2023 FINDINGS: CT CHEST LOW DOSE SCREENING HISTORY: Screening exam for lung cancer. 58-year-old female, Current smoker, 63 pack year smoking history DOSE: CTDIvol: 2.90 mGy, DLP: 113.33 mGy*cm COMPARISON: 05/07/2023. TECHNIQUE: Axial CT without IV contrast administration using low dose protocol. This study was performed with techniques to keep radiation doses as low as reasonably achievable, (ALARA). Individualized dose reduction techniques using automated exposure control or adjustment of mA and/or kV according to the patient's size were employed. FINDINGS: No acute lung disease is present . The groundglass opacity seen in the right upper lobe on the prior CT of 2023 has resolved. Changes of emphysema are once again noted. Mild left apical scarring is present, as well as evidence of prior granulomatous disease. No pleural or pericardial effusion is seen . No adenopathy or mass lesion is present . IMPRESSION: 1. No evidence of lung cancer LUNG RADS CATEGORY 1 RECOMMENDATION: 12 month LDCT follow up Reviewed, Interpreted and Dictated by Sonam Lawler MD Transcribed by Li Paniagua Authenticated and [facility]
== END 2024-04-28 23:59 | disposition home or self-care (01) ==
LOC: RAD 13:44
PROVIDERS: PCP Nurse Practitioner Family; Visit Provider Nurse Practitioner Family
DX: Z87.891 Personal history of nicotine dependence (principal)
CPT/HCPCS: 71271

== ENCOUNTER 2024-05-23 09:00 | Outpatient (RCR) | payer OTHER, SELFPAY | END 2024-05-23 23:59 | disposition home or self-care (01) | LOC: OT 09:00 | PROVIDERS: Visit Provider Orthopaedic Surgery | DX: M79.621 Pain in right upper arm (principal) | CPT/HCPCS: 97165 ==